=== PATIENT | female | born 1990 | race Caucasian/White ===

== ENCOUNTER → 2016-10-19 | Outpatient (CLI) | payer BC ==
[~2016-10-19] MED LIST: ATIVAN 1MG T1 MG/TAB PO; AVIANE 0.02 MG-1 TAB PO; LIALDA 1.2 GM1.2 GM PO; ORENCIA125 MG/ML SC; PERCOCET 5/321 UDTAB PO; PREDNISONE10 MG PO
== END ==
LOC: BHSO 09:21
DX: F41.1 Generalized anxiety disorder (principal)

== ENCOUNTER → 2016-12-06 | Outpatient (CLI) | payer BC | LOC: BHSO 09:25 | DX: F41.1 Generalized anxiety disorder (principal) ==

== ENCOUNTER → 2017-01-13 | Outpatient (CLI) | payer BC | LOC: BHSO 10:40 | DX: F41.1 Generalized anxiety disorder (principal) ==

== ENCOUNTER → 2017-04-18 | Outpatient (CLI) | payer BC | LOC: BHSO 11:21 | DX: F41.1 Generalized anxiety disorder (principal) ==

== ENCOUNTER → 2017-05-19 | Outpatient (CLI) | payer BC | LOC: BHSO 11:36 | DX: F41.1 Generalized anxiety disorder (principal) ==

== ENCOUNTER → 2017-08-02 | Outpatient (CLI) | payer BC | LOC: BHSO 10:58 | DX: F41.1 Generalized anxiety disorder (principal) ==

== ENCOUNTER 2017-09-28 10:04 | Day surgery (SDC) | payer BC ==
[~2017-09-28] VITALS: Ht 167.6 cm; Wt 72.1 kg
[2017-09-28] VITALS (7 sets, daily range): BP systolic 111–122; BP diastolic 59–70; PULSE 95–107; TEMP 98–98.7
[2017-09-28] MEDS ORDERED: BALSALAZIDE DI750 MG PO (11:02)
[2017-09-28] MEDS ORDERED: KLONOPIN 0.5MG0.5 MG PO (11:03)
[2017-09-28] MEDS ORDERED: BIOTIN5000 MCG PO (11:03)
[2017-09-28] MEDS ORDERED: FLONASEALLERGY NS (11:04)
[2017-09-28] MEDS ORDERED: PROBIOTIC FORMU1 CAP PO (11:04)
[2017-09-28] MEDS ORDERED: XELJANZ XR11 MG PO (11:05)
[2017-09-28] MEDS ORDERED: EPA FISH OIL1 SGL PO (11:05)
[2017-09-28] MEDS ORDERED: ZYRTEC 10MG10 MG PO (11:05)
[2017-09-28] MEDS ORDERED: GLUCOSAMINE & C1 CA2 PO (11:06)
[2017-09-28] MEDS ORDERED: CALCIUM 600MG+D1 TAB PO (11:07)
[2017-09-28] MEDS ORDERED: TURMERIC500 MG PO (11:08)
[2017-09-28] MEDS ORDERED: PHARMASSURE ZIN50 MG PO (11:09)
[2017-09-28] MEDS ORDERED: THORAZINE 225 MG/TAB PO (11:09)
[2017-09-28] MEDS ORDERED: MELATONIN5 M1 PO (11:10)
[2017-09-28] MEDS ORDERED: KLONOPIN 1MG1 MG PO (11:10)
[2017-09-28] MEDS ORDERED: VIENVA-28 TABL1 EACH PO (11:11)
[2017-09-28] MEDS ORDERED: PERCOCET 325 MG1 TAB (11:12)
[2017-09-28] MEDS ORDERED: PREDNISONE20 MG (11:13)
[2017-09-28] MEDS ORDERED: ASPI325T6 PO (15:29)
== END 2017-09-28 17:00 | disposition home or self-care (01) ==
LOC: SDCO 10:04
DX: M23.611 Other spontaneous disruption of anterior cruciate ligament of right knee (principal); M23.51 Chronic instability of knee, right knee; M23.8X1 Other internal derangements of right knee; M23.361 Other meniscus derangements, other lateral meniscus, right knee; M06.9 Rheumatoid arthritis, unspecified; K51.90 Ulcerative colitis, unspecified, without complications; F42.9 Obsessive-compulsive disorder, unspecified; F32.9 Major depressive disorder, single episode, unspecified; F41.9 Anxiety disorder, unspecified; Z68.25 Body mass index [BMI] 25.0-25.9, adult; Z88.0 Allergy status to penicillin; Z88.8 Allergy status to other drugs, medicaments and biological substances; Z88.5 Allergy status to narcotic agent
CPT/HCPCS: C1713; J1100; J1170; J1200; J1885; J2250; J2405; J2704; J7120